=== PATIENT | male | born 2000 | race Caucasian/White ===

== ENCOUNTER 2020-08-19 12:37 | Emergency (ER) | payer OTHER, SELFPAY ==
[2020-08-19 14:40] VITALS: BP 128/75; PULSE 73; RESP 18; TEMP 36.8; O2SAT 99; BMI 23.7
== END 2020-08-19 15:28 | disposition left against medical advice (07) ==
LOC: HO.ED 15:20
PROVIDERS: Emergency Provider Emergency Medicine; PCP Specialist
DX: M43.6 Torticollis (principal)
CPT/HCPCS: 99281; 99282

== ENCOUNTER 2021-03-13 11:37 | Outpatient (REF) | payer OTHER, SELFPAY ==
[2021-03-13 14:43] LABS: Binax Internal Control QC Valid; Binax Lot number: 9864; Binax Now Covid-19 Ag Positive (Negative)
== END 2021-03-13 11:38 | disposition home or self-care (01) ==
LOC: HO.LAB 11:37
PROVIDERS: Visit Provider Internal Medicine
DX: Z20.822 Contact with and (suspected) exposure to COVID-19 (principal)
CPT/HCPCS: 36415